=== PATIENT | female | born 1935 | race Caucasian/White ===

== ENCOUNTER 2017-01-15 10:30 | Inpatient (IN) | payer MEDICARE, OTHER ==
[~2017-01-15] VITALS: Ht 160 cm; Wt 49.9 kg
--- NOTE | ~2017-01-15 | CON ---
PATIENT'S NAME: JESSICA LE [facility] AGE: 81 Y [address] ROOM: [id number], [place] [address] LOCATION: GICU ADMIT DATE: 01/15/2017 Consultation DISCHARGE DATE: FAMILY PHYSICIAN: RUBEN MAYFIELD MD ATTENDING PHYSICIAN: Bello Bess DATE OF CONSULTATION: 01/15/2017 NEUROLOGIC CONSULTATION REASON FOR CONSULTATION: This is an 81-year-old female, whom I saw in neurologic consultation on 01/15/2017 at 4:00 p.m. at the request of Dr. Nanette Ni, hospitalist. HISTORY OF PRESENT ILLNESS: Ms. Le is very high functioning 81-year-old female patient, who lives alone and is very independent. Her daughter does live in the area and present at the interview today here in the hospital. Apparently, Ms. Le was working outside in her garden, and she simply got off balance accidentally and fell backwards, landing on the left back injuring her left rib area, but did not hit her head. She denies any loss of consciousness, dizziness, or lightheadedness prior to the event. She simply stated that she had slipped on the pavement and had fallen backward. Being independent, she decided to go to the hospital on her own, and she drove to the hospital on Wednesday, 4 days ago. Apparently at the hospital, they did see her in the emergency room, and they let her go home. I do not believe that they gave her any pain medications per se, and the patient got a clean bill of health that evening told that she had rib injury, but she was unclear if she had any rib fractures. Apparently, by the next day on Wednesday, she was in quite a bit of pain during the course of the day, and daughter, who lives somewhat nearby, decided to come over and saw her that evening. By Wednesday, her pain continued to be quite intense, and she even experienced some minor nauseousness with the pain. Apparently, she was only taking some non-steroidals as well as Tylenol for her pain. By evening surprisingly, she did feel quite well and had breakfast with her daughter, and told her daughter she was going to lie down. At approximately 11:30 a.m. prior to both her daughter and the patient going out to lunch, the daughter felt that she seemed to be a bit disoriented. She suddenly had difficulty remembering her daughter's name and other family members' name. She did not have aphasia per se where she could not answer commands or name objects or parts of objects. She seemed to be a bit under some stress and anxious, indeed have some mild confusion only for names, and again did not have any difficulty for word finding per se. The patient was taken to the emergency room due to the transient difficulty with remembering names, but by the evening in the emergency room, she seemed to get a dramatic improvement in her mental status. Workup here in the emergency room on PATIENT'S NAME: JESSICA LE [facility] AGE: 81 Y [address] ROOM: [id number], [place] [address] LOCATION: [facility] ADMIT DATE: 01/15/2017 Consultation DISCHARGE DATE: FAMILY PHYSICIAN: RUBEN MAYFIELD MD ATTENDING PHYSICIAN: Bello Bess , today briefly admitted her for observation. A CAT scan was performed of the brain, which did not show any evidence of any intracranial hemorrhage or evidence for an evolving stroke. They did try to do an MRI, and apparently, she was a bit rambunctious and did not stay still for the MRI. However, review of the MRI appeared to be sufficient, and no evidence of a stroke was seen nor was there any evidence of intracranial pathology. The patient was transferred here to our hospital from [place] for just an evaluation to potentially workup her for a stroke. When I saw the patient today, she was absolutely back to her baseline. She was performing crossword puzzles in the room, and her daughter said that she was performing very well. A speech therapist did come around earlier in the day and thought that she may have had some neglect of her left side, particularly in clock drawing. However, the patient herself denied that this was an issue, in fact she was aware that perhaps she could not necessarily perform the task very well. Other than that, her daughter really says that she did not notice her having any difficulty with memory and certainly no evidence of any word finding deficits. In the course of the morning, she was in some pain and she had received tramadol. She found this medication to be quite helpful, and she was written for this during the course of the day, now on a p.r.n. basis. When I saw the patient, she appeared comfortable, in no acute distress. She answered all questions appropriately and spontaneously. She recalled all the events of the past week and was very good with discussing time and date and was very oriented to the events of each particular day, even though it is quite difficult to necessarily remember what happens on every day. Currently, she denies any headache or neck pain. She does have a bit of left lateral rib pain, which was present previously in the week, but she says that the pain is actually under better control today. PRIOR MEDICAL HISTORY: Significant for osteoporosis, otherwise negative. SURGICAL HISTORY: Included an appendectomy. ALLERGIES: SHE HAS AN ALLERGY TO SULFA. MEDICATIONS: Her current medications here in the hospital include: 1. Tramadol 50 mg q.6 hours p.r.n. pain. 2. Multivitamin daily. 3. Aspirin 325 mg daily. 4. Calcium carbonate 500 mg twice a day. FAMILY HISTORY: PATIENT'S NAME: JESSICA LE [facility] AGE: 81 Y [address] ROOM: [address] [address] LOCATION: [facility] ADMIT DATE: 01/15/2017 Consultation DISCHARGE DATE: FAMILY PHYSICIAN: RUBEN MAYFIELD MD ATTENDING PHYSICIAN: Bello Bess Noncontributory here. SOCIAL HISTORY: She lives alone. She is very independent. Her daughter has a good relationship and does live somewhat nearby and checks up on her every once in a while. She is high functioning. She goes out of the home every day. She usually works around the garden. She denies any smoking history. No alcohol use. No illicit drug use. REVIEW OF SYSTEMS: The patient had an accidental fall 4 days prior to her admission to this hospital. She states that the fall was unassociated with any lightheadedness or dizziness, simply tripped, and she landed on her left side and injured her ribs. She did not have any head injury, and she did not have any headaches or neck pain or focal weakness of the arms or legs. She independently went to the ER and had some pain during the week. She experienced what sounded as though acute problem with remembering persons' names that are familiar to her transiently on the day prior to admission here. Essentially, a negative workup for a stroke. She is now back at her baseline. Other review of systems is within normal limits. PHYSICAL EXAMINATION: GENERAL: This is a healthy-appearing 81-year-old female, in no acute distress. NEUROLOGIC: She has excellent mentation. She remembers 5/5 object recall at 5 minutes as well as 5/5 objects on immediate recall. Serial 7S were performed very well. I tested clock drawing with her, and she performed this well. She was doing crossword puzzles at that time, and she was answering them normally. Her neck was supple on flexion and extension. Her power in her upper and lower extremities was symmetric 5/5. Normal bulk and tone. Rapid alternating hand movements were normal and [id number] was intact. Normal sensory exam to light touch and position sense was intact. She had no evidence of a cortical neglect on double simultaneous stimulation and identifying right and left discrimination, she performed this normally. She displayed no visual field neglect. Her gait was normal, narrow based, negative Romberg. IMPRESSION AND PLAN: Ms. Le experienced yesterday event that probably was related to the recent fall where she did have a bit of confusion state, probably in the setting of some pain. It does not appear that a medication per se was associated with this, and I do not have a necessarily etiology for this very brief event. It did not sound as though this was an aphasia from my understanding. She did not have any difficulty in naming objects and parts of objects nor was she answering questions appropriately such as PATIENT'S NAME: JESSICA LE [facility] AGE: 81 Y [address] ROOM: [place] [address] LOCATION: [facility] ADMIT DATE: 01/15/2017 Consultation DISCHARGE DATE: FAMILY PHYSICIAN: RUBEN MAYFIELD MD ATTENDING PHYSICIAN: Bello Bess misunderstandings, and she simply had lapses in her memory for name and could simply been in an anxiety state and is not uncommon in a person who had recent stressor in association with some pain. This lasted very briefly, and the patient has gone back to her baseline mental status. Seen she did have an MRI, though it was somewhat incomplete, I do not believe she needs to have a further brain imaging. She has a nonfocal exam. She is very high functioning presently. She performed all tests properly, and did not demonstrate any cortical neglect findings on my testing. Did have an echocardiogram, which just to rule out any possibility of embolic phenomena, and there was nothing to suggest that this was the case. She had good ejection fraction, slightly dilated atrium, no evidence of any arrhythmia on her presentation nor on prior EKGs I reviewed from the prior hospital. She has slightly elevated TSH that should possibly be monitored hereafter or treated if appropriate with the hospitalist, though outright difficult to say if she truly has hypothyroidism. I do agree with the use of tramadol on a p.r.n. basis as she has found that this medication to be helpful, and she has no abnormal side effects from this medication. From a neurologic standpoint, she appears to be very stable today, and I do not see that she needs any further neurologic workup as there is lacking evidence here for any transient ischemic attack or signs of a stroke. MD GERMAIN PETERSON/sugey /[id number] d: 01/16/17 0259 t: 01/20/17 1748, CONSULTATION REPORT
--- NOTE | ~2017-01-15 | ECHO ---
Transthoracic Echocardiography Report (TTE) Demographics Patient Name JESSICA LE Date of Study 01/15/2017 Patient Number [id number] Visit Number [id number] Date of 1935 Room Number [id number] Accession Number [id number] Gender Female Age 81 year(s) Referring Last Fitzpatrick MD Pit Shoveler Sera Shell RVT Physician Physician Interpreting Aramis Lacy Automatic Die Cutting Machine Operator Physician Supervising Ordering Physician Last Fitzpatrick MD, MD/P Nurse Stress Data Communications Technician Conclusions Contractility Score Summary Normal Left Ventricular contractility was noted. Summary Normal LV/RV size and systolic function. The estimated left ventricular ejection fraction is 60%. Mild concentric left ventricular hypertrophy. Diastolic flow assessment reveals a pseudonormal pattern consistent with Grade II diastolic dysfunction . Mildly reduced right ventricular function. The left atrium is moderately dilated by LA volume index measurement. IVC measures 1.09 cm with partial inspiratory collapse. No significant valvular abnormalities. Procedure Type of Study TTE procedure:2D Echocardiogram. Procedure Date Date: 01/15/2017 Start: 04:02 PM Study Location: Inpatient Portable Technical Quality: Adequate visualization Indications:TIA. Appropriate Use Criteria: 9 Patient Status: Routine M-Mode/2D Measurements LV Diastolic Dimension: 3.87 cm LV Systolic Dimension: 3.28 cm LV Septum Diastolic: 1.35 cm LV PW Diastolic: 1.29 cm AO Root Dimension: 2.1 cm AV Cusp Separation: 1.9 cm RV Diastolic Dimension: 2.86 cm LA Dimension: 3.2 cm LA volume: 57 ml RV Base: 2.54 cm LVOT: 1.9 cm RV Mid: 2.55 cm LVOT VTI: 19.5 cm RV Length: 5.17 cm LV Stroke volume: 55.26 ml TDI-S': 14.8 cm/s Doppler Measurements AV Peak Velocity: 1.27 m/s MV Peak E-Wave: 0.85 m/s AV Peak Gradient: 6.45 mmHg MV Peak A-Wave: 0.72 m/s AV Mean Gradient: 4 mmHg MV E/A Ratio: 1.19 LVOT Peak Velocity: 0.99 m/s MV P1/2t: 82 msec TR Gradient:20.07 mmHg PV Peak Velocity: 0.79 m/s Estimated RAP:15 mmHg PV Peak Gradient: 2.46 mmHg Estimated RVSP: 35 mmHg Estimated PASP: 35.07 mmHg E' Septal Velocity: 0.06 m/s A' Septal Velocity: 0.12 m/s E' Lateral Velocity: 0.1 m/s A' Lateral Velocity: 0.14 m/s Findings Left Ventricle Mild concentric left ventricular hypertrophy. Diastolic assessment reveals Grade II pseudonormal diastolic function . Right Ventricle Normal RV size and systolic function.. Left Atrium The left atrium is moderately dilated by LA volume index measurement. Interatrial septum is thickened s/o lipomatous IA septum. Right Atrium IVC measures 1.09 cm with partial inspiratory collapse. Mitral Valve Mild mitral annular calcification. Mild mitral regurgitation by color Doppler. Aortic Valve The aortic valve is mildly sclerotic. Tricuspid Valve Mild tricuspid regurgitation by color Doppler. The pulmonary pressure (RVSP) is 35 mmHg. Pulmonic Valve Trivial pulmonic valve regurgitation by color Doppler. Pericardial Effusion No evidence of pericardial effusion. Miscellaneous Visualized portions of the aortic root and ascending aorta appear normal in size. Pleural Effusion No evidence of pleural effusion. Contractility Score LV regional wall motion:(0-Non visualized 1-Normal 2-Hypokinesis 3-Akinesis 4-Dyskinesis 5-Aneurysm) Signature dtt: GÓMEZ HUTCHINSON dtd: 01/15/17 1602 Physician Self Edit
--- NOTE | ~2017-01-15 | HP ---
PATIENT'S NAME: FIDELIA LE [facility] AGE: 81 Y [address] ROOM: [id number] [place], [place] [address] LOCATION: [facility] ADMIT DATE: 01/15/2017 History & Physical DISCHARGE DATE: FAMILY PHYSICIAN: RUBEN MAYFIELD MD ATTENDING PHYSICIAN: Bello Bess DATE OF SERVICE: 01/15/2017 CHIEF COMPLAINT: Transient confusion. HISTORY OF PRESENT ILLNESS: Ms. Fidelia Le is an 81-year-old female, who resides in [place], [place]. She was in her usual state of relatively good health until Wednesday January 11, 2017, when she was outside of her house, moving some houses around when she fell backwards off a curb. She was evaluated at the [place] [facility] following the fall, having been able to drive herself there and was noted to be alert and oriented x3 during the evaluation. No serious injuries were noted at that time. The patient reported to her daughter who lives in [place] that she was in terrible pain on Wednesday01/12/2017, and her daughter came to stay with her. She was recommended by her doctors to treat her pain with ibuprofen and/or Tylenol. However, the next day, she was feeling much worse, and she became nauseated. Following morning , she was actually feeling somewhat better and then took a nap. When she woke up from this nap, she was unable to form her words because of being unable to think of them, and she did not recognize her daughters. She was confused as to all of her personal information as well. She was then taken to [place] [facility] again where CT of the head was negative. Her serum sodium was 129, and she was started on IV fluids. An attempt to obtain an MRI of the brain was made; however, the patient was in too much pain from the left side of her chest where she had fallen on Wednesday to lie still enough to complete the MRI. The patient was seemingly improved this morning at the [facility], but the daughters were extremely concerned about the etiology of her sudden confusion and wanted further evaluation. At that time, they requested transfer to our hospital, and we accepted her in transfer. Her daughter, Juanita Le, brought her from [place] in a personal vehicle to the hospital, and they brought her here at 11:30 this morning. She reports that she is doing clinically much better. In fact, she feels that her speech is at the baseline. I am able to glean most of the history from the patient herself. PAST MEDICAL HISTORY: PATIENT'S NAME: FIDELIA LE [facility] AGE: 81 Y [address] ROOM: [id number] [address] LOCATION: [facility] ADMIT DATE: 01/15/2017 History & Physical DISCHARGE DATE: FAMILY PHYSICIAN: RUBEN MAYFIELD MD ATTENDING PHYSICIAN: Bello Bess 1. Osteoarthritis of the hands, this is essentially not an issue for the patient. 2. Osteoporosis with compression fractures in the spine and significant kyphosis. PAST SURGICAL HISTORY: 1. Bilateral cataract resection with lens implants. 2. Appendectomy. ALLERGIES: SULFA. MEDICATIONS: 1. Aspirin 81 mg daily. 2. She reportedly does take some calcium, but that is not listed. IMMUNIZATIONS: She is up-to-date on shingles, influenza, and pneumococcal, and she denies any TB exposure. SOCIAL HISTORY: She has been since 2007. She has 3 children. Her daughters report being adopted. She walks daily. She is retired from working as a speech therapist in the school system. She has smoked only socially prior to age 23 and has not smoked since. She drinks alcohol only rarely. FAMILY MEDICAL HISTORY: Her mother at age 97. Her father at age 90 of a stroke. She had 2 brothers and 2 sisters. Her brother at 67 of leukemia. Her oldest sibling at 73 of a brain cancer. Her 2 sisters are still living. She is able to walk without assistance and again is very active, and even drives from [place] to [place] to help take care of her grandchildren. REVIEW OF SYSTEMS: GENERAL: She denies weight loss or gain. Her appetite was normal until Wednesday, since the fall has been diminished. She reports being always tired despite the fact that she says she works in her yard and does other activities and walks daily. She does take a daily nap. She denies fevers, chills, or sweats. HEENT: She has occasional headache and no change in headache since the fall. She denies blurred vision, dizziness. She has a history of cataract resection. Glasses are in place. Within the past couple of weeks, she had some allergic conjunctivitis but otherwise denies nasal stuffiness, nosebleeds, sore throat, dysphagia, and odynophagia. PULMONARY: The daughters report that she snores and does have apneic episodes PATIENT'S NAME: FIDELIA LE [facility] AGE: 81 Y [address] [id number] [address] LOCATION: [facility] ADMIT DATE: 01/15/2017 History & Physical DISCHARGE DATE: FAMILY PHYSICIAN: RUBEN MAYFIELD MD ATTENDING PHYSICIAN: Bello Bess in her sleep but has not been tested for sleep apnea. She denies significant shortness of breath, orthopnea, cough, sputum production, wheezing. She has pain in the posterior left ribs. CARDIOVASCULAR: She does not have any [place] history or history of heart disease including murmur, palpitation. She denies any edema. GASTROINTESTINAL: She denies indigestion, heartburn, reflux, vomiting, diarrhea, or constipation except for that she has not had a stool for the past couple of days, and she has not been eating as much lately, and positive for some nausea 2 days ago. GENITOURINARY: Negative for frequent UTIs, incontinence, polyuria, hematuria etc. NEUROLOGIC: Positive for the recent transient episode of confusion where she had expressive aphasia and was unclear of who she was, where she was, and who her children were. As in the HPI, she had fallen and the last fall was more than 2 years ago. Her memory also appears to be transient as she is able to provide quite detailed history about her family history and her own personal habits. HEMATOLOGIC: Negative for history of anemia, bruising, clots, and venous thromboembolism disease. MUSCULOSKELETAL: She does have significant kyphosis, rib pain. She has enlarged MCP joints in both hands. SKIN: She has fair skin, which is freckle but denies rashes, itching, petechiae, skin cancers. PSYCHIATRIC: Negative for depression and insomnia or other. The patient offers no other complaints at this time. PHYSICAL EXAMINATION: GENERAL: This is a petite, elderly female, sitting up in bed in the [facility]. She is in no acute distress. HEENT: Normocephalic, atraumatic. Her pupils are equal, round, and reactive to light, both direct and consensual. Palpebral conjunctivae are pink without exudate. Oropharynx is clear. The soft palate lifts symmetrically. Her speech is clear. NECK: Supple without lymphadenopathy or thyromegaly. PULMONARY: She does have a significant kyphosis, more pronounced on the left. She is tender over the left lower ribs laterally. She has no vertebral tenderness and no flank tenderness. LUNGS: Clear to auscultation and percussion bilaterally. CARDIOVASCULAR: Regular rate and rhythm without murmur, rub, or gallop. ABDOMEN: Soft, round, doughy, nontender, nondistended without mass,with normoactive bowel sounds. EXTREMITIES: No cyanosis, clubbing, or edema. Dorsalis pedis pulses are 2+ and radial pulses are 2+ and equal bilaterally. The strength is about normal. Able to grasp and dorsiflexion and plantar flexion. NEUROLOGIC: Cranial nerves 2 through 12 grossly intact. She has good PATIENT'S NAME: FIDELIA LE [facility] AGE: 81 Y [address] ROOM: [address] [address] LOCATION: [facility] ADMIT DATE: 01/15/2017 History & Physical DISCHARGE DATE: FAMILY PHYSICIAN: RUBEN MAYFIELD MD ATTENDING PHYSICIAN: Bello Bess proximal strength, also on the shoulders. SKIN: Warm, dry. Good turgor. PSYCH: She is alert, oriented to person, place, time, knows the year, the place. LABORATORY DATA: These labs were drawn yesterday at the [facility]. An Accu-Chek was 126. Sodium 129, potassium 3.6, chloride 92, CO2 of 21, BUN 13, creatinine 1.17, serum glucose 129. EGFR 44, calcium 9.0. Total protein 7.1, albumin 4.0, total bili 0.4. Normal liver function. White blood cell count 7.75, hemoglobin 13.6, hematocrit 39, platelets 228, and normal differential. RADIOGRAPHIC STUDIES: A CT showed diffuse atrophy, otherwise no acute infarct or bleed. ASSESSMENT AND PLAN: 1. This is a pleasant elderly lady from [place] with transient confusion and expressive aphasia. With what the daughters' report the symptoms possibly of sleep apnea; if she has sleep apnea, she has more risk for stroke. Her father of stroke at age 90. I would be concerned about embolic stroke. We will get an echocardiogram. Continue her on telemetry. Also, assess some labs regarding her neurologic function with TSH, B12, vitamin D, sedimentation rate, and I have consulted Dr. Bautista, who has agreed to see her. We will start her on a full-dose aspirin. She was taking 81 mg at home. 2. Hyponatremia. This does not seem quite to the degree, which would cause the amount of confusion that she had, but apparently, she did get some IV fluids already, and we will recheck her sodium level now and continue some sodium replacement and IV fluids if indicated at that time. 3. Elevated blood pressure on the monitor. We will keep an eye on this. It is not something that I would treat at this time. She may need some treatment for hypertension as an outpatient. 4. Osteoporosis, status post recent fall with left-sided rib pain. We will check rib films. We will treat the pain with tramadol. I will check her vitamin D level. She is on b.i.d. calcium supplement and proceed from there. 5. Disposition. She should be able to go home in the next 24 to 36 hours. She will be placed on the hospitalist service. MICHELLE RICHTER MD LM/sugey PATIENT'S NAME: FIDELIA LE [facility] AGE: 81 Y [address] ROOM: [place] [address] LOCATION: [facility] ADMIT DATE: 01/15/2017 History & Physical DISCHARGE DATE: FAMILY PHYSICIAN: RUBEN MAYFIELD MD ATTENDING PHYSICIAN: Bello Bess /[id number] P D: [id number] T: [id number] HISTORY & PHYSICAL
[2017-01-15] MEDS ORDERED: CALCIUM 500 +1 EACH PO (13:57)
[2017-01-15] MEDS ORDERED: PRESERVISION A1 EACH PO (13:58)
[2017-01-15 15:22] LABS: ALBUMIN 3.8 gm/dL (3.5-5.0); ANION GAP 9.1 (10.0-19.0); BLOOD UREA NITROGEN 9 mg/dL (6-24); CALCIUM 8.6 mg/dL (8.5-10.5); CHLORIDE 101 mMol/L (96-110); CO2 28 mMol/L (22-32); CREATININE 0.8 mg/dL (0.5-1.1); ESTIMATED GFR (MDRD EQUATION) > 60; MAGNESIUM 2.3 mg/dL (1.8-2.6); PHOSPHORUS 2.5 mg/dL (2.5-4.9); POTASSIUM 4.1 mMol/L (3.7-5.1); SODIUM 134 mMol/L (135-145)
[2017-01-16 05:47] LABS: ANION GAP 8.9 (10.0-19.0); BLOOD UREA NITROGEN 12 mg/dL (6-24); CALCIUM 8.2 mg/dL (8.5-10.5); CHLORIDE 100 mMol/L (96-110); CO2 28 mMol/L (22-32); CREATININE 0.8 mg/dL (0.5-1.1); ESTIMATED GFR (MDRD EQUATION) > 60; POTASSIUM 3.9 mMol/L (3.7-5.1); SODIUM 133 mMol/L (135-145)
[2017-01-16] MEDS ORDERED: ULTRAM50 MG PO (14:22)
[2017-01-16] MEDS ORDERED: TYLENOL325 MG PO (14:22)
[2017-01-16] MEDS ORDERED: LIDODERM1 EACH TOP (14:24)
[2017-01-16] MEDS ORDERED: ZOFRAN4 MG PO (14:25)
== END 2017-01-16 14:45 | disposition disaster alternative care site (69) | DRG 884 ==
LOC: GICU 11:12
PROVIDERS: Internal Medicine; ADMIT Family Medicine
DX: R40.4 Transient alteration of awareness (principal); E87.1 Hypo-osmolality and hyponatremia; R03.0 Elevated blood-pressure reading, without diagnosis of hypertension; M81.0 Age-related osteoporosis without current pathological fracture; Z87.310 Personal history of (healed) osteoporosis fracture; Z91.81 History of falling; Z87.891 Personal history of nicotine dependence; Z88.2 Allergy status to sulfonamides; Z79.82 Long term (current) use of aspirin; Z66 Do not resuscitate
CPT/HCPCS: J7030